=== PATIENT | male | born 1965 | race African-American/Black ===

== ENCOUNTER 2018-10-07 14:21 | Emergency (ER) | payer BC, OTHER ==
[2018-10-07] MEDS ORDERED: Pantoprazole 40 MG Tab.CR PO ONE (14:45)
[2018-10-07] MEDS ORDERED: Alum Hydrox/Mag Hydrox/Simeth 30 ML, Lidocaine 2% 15 ML PO ONE ×2 (14:45)
--- NOTE | 2018-10-07 14:50 | EDM.PDOC ---
ED HPI GENERAL MEDICAL PROBLEM - General Chief Complaint: Chest Pain Stated Complaint: [facility] Time Seen by Provider: 10/07/18 14:36 Source of Information: Reports: Patient History Limitations: Reports: No Limitations - History of Present Illness INITIAL COMMENTS - FREE TEXT/NARRATIVE: Patient is a 53-year-old male who presents to the ED via ambulance with concerns of having substernal chest pain described as a burning sensation half hour after eating pizza. Patient is a heavy equipment operator apprentice and was speaking with his girlfriend when this occurred. Pain came on quite strong described as a burning sensation with no radiation. There is no diaphoresis, short of breath , nausea vomiting, abdominal pain, dizziness, palpitations, or sensation of going to pass out. There is no back pain associated with this as well. He denies any pain to his upper extremities. He has no prior history of GERD or pain as such. States while in route to the hospital symptoms resolved. He has no complaints at this time. He does take lisinopril 20 mg every day for his hypertension. He has taken this medication today. He has no history of diabetes , lung disease, hypercholesteremia, DVT/PE, and/or any other history. There is no first-degree relatives with heart disease. Chest Pain Score (Numeric/FACES): 0 - Related Data Allergies Allergy/AdvReac Type Severity Reaction Status Date / Time No Known Allergies Allergy Verified 10/07/18 14:27 Home Meds: Home Meds Lisinopril 20 mg PO DAILY 10/07/18 [History] Past Medical History Cardiovascular History: Reports: Hypertension - Past Surgical History GI Surgical History: Reports: Hernia Repair/Other Other Musculoskeletal Surgeries/Procedures:: back sx Social & Family History - Family History Cardiac: Reports: [place] Other Cardiac Family History: maternal grandfather - Tobacco Use Smoking Status *Q: Current Some Day Smoker Years of Tobacco use: 20 Packs/Tins Daily: 1 - Caffeine Use Caffeine Use: Reports: Tea - Recreational Drug Use Recreational Drug Use: No ED ROS GENERAL - Review of Systems Review Of Systems: ROS reveals no pertinent complaints other than HPI. Constitutional: Denies: Fever, Chills, Malaise, Weakness, Fatigue, Decreased Appetite HEENT: Reports: No Symptoms Respiratory: Reports: No Symptoms Cardiovascular: Reports: Chest Pain, Blood Pressure Problem. Denies: Claudication, Dyspnea on Exertion, Edema, Lightheadedness, Orthopnea, Palpitations, PND, Syncope GI/Abdominal: Reports: No Symptoms Musculoskeletal: Reports: No Symptoms Neurological: Reports: No Symptoms ED EXAM, GENERAL - Physical Exam Exam: See Below Exam Limited By: No Limitations General Appearance: Alert, WD/WN, No Apparent Distress Eye Exam: Bilateral Eye: Normal Inspection Ears: Hearing Grossly Normal Nose: Normal Inspection Throat/Mouth: Normal Inspection, Normal Oropharynx, Normal Voice, No Airway Compromise Head: Atraumatic, Normocephalic Neck: Normal Inspection, Supple, Non-Tender, Full Range of Motion. No: Lymphadenopathy (L), Lymphadenopathy (R) Respiratory/Chest: No Respiratory Distress, Lungs Clear, Normal Breath Sounds, No Accessory Muscle Use, Chest Non-Tender Cardiovascular: Normal Peripheral Pulses, Regular Rate, Rhythm, No Murmur Peripheral Pulses: 2+: Radial (L), Radial (R), Popliteal (L), Popliteal (R) GI/Abdominal: Normal Bowel Sounds, Soft, Non-Tender, No Organomegaly, No Distention Back Exam: Normal Inspection. No: CVA Tenderness (L), CVA Tenderness (R) Extremities: Normal Inspection, Normal Range of Motion, Non-Tender, No Pedal Edema Neurological: Alert, Oriented, CN II-XII Intact, Normal Cognition, No Motor/ Sensory Deficits Psychiatric: Normal Affect, Normal Mood Skin Exam: Warm, Dry, Intact, Normal Color, No Rash Course - Vital Signs Last Recorded V/S: Last Vital Signs Temp 98.4 F 10/07/18 14:24 Pulse 90 10/07/18 14:24 Resp 20 10/07/18 14:24 BP 164/118 H 10/07/18 14:24 Pulse Ox 94 L 10/07/18 14:24 - Orders/Labs/Meds Orders: Active Orders 24 hr Category Date Time Status EKG 12 Lead [EKG Documentation Completion] [RC] STAT Care 10/07/18 14:45 Active Meds: Medications Discontinued Medications Generic Name Dose Route Start Last Admin Trade Name Vincenzoq PRN Reason Stop Dose Admin Al Hydroxide/Mg Hydroxide 30 0 ml 10/07/18 14:45 10/07/18 14:55 ml/ Lidocaine HCl 15 ml PO 10/07/18 14:46 45 ml ONETIME ONE Administration Pantoprazole Sodium 40 mg 10/07/18 14:45 10/07/18 14:55 Protonix PO 10/07/18 14:46 40 mg DAILY ONE Administration - Re-Assessments/Exams Free Text/Narrative Re-Assessment/Exam: Blood pressure 167/124, heart rate 85, SPO2 98%, respiratory rate 24. patient denies any complaints at this time. I've offered to obtain EKG, chest x-ray, and labs along with treatment with a PPI and GI cocktail. Patient states since he does not have any discomfort currently believes most likely related to acid reflux he refuses any lab work and/or chest x-ray. He has agreed to obtain EKG and treatment with GI cocktail/ protonix. EKG: Sinus rhythm at a rate [address] changes. 1518Reassessment, Patient doing well. No complaints. Tolerated the medications. He is ready to be discharged. Return precautions discussed with patient. He had no further questions or concerns. Discharge instructions documented. Departure - Departure Time of Disposition: 15:22 Disposition: Home, Self-Care 01 Condition: Good Clinical Impression: Gastroesophageal reflux disease Qualifiers: Esophagitis presence: esophagitis presence not specified Qualified Code(s): K21.9 - Gastro-esophageal reflux disease without esophagitis Hypertension Qualifiers: Hypertension type: essential hypertension Qualified Code(s): I10 - Essential ( primary) hypertension Instructions: Indigestion, [id number], Hypertension, [id number], DASH Eating Plan Referrals: PCP,Unknown [Primary Care Provider] - Forms: ED Department Discharge, ED Return to Work/School Form Additional Instructions: As discussed, I suspect cause of recent symptoms is most likely acid reflux. Thus will have you start taking Prilosec 20 mg every morning until evaluated by PCP. May utilize Zantac 150 mg at bedtime as needed. Refrain from spicy foods, caffeinated beverages, and/or eating/drinking within 4 hours of going to bed. Stick with a bland diet. Blood pressure was quite elevated with admission to the ED. Will have you start taking lisinopril 40 mg every day. Please follow up with pcp in the next week. Since no labs or chest x-ray were obtained other causes of chest discomfort were not ruled out. If for any reason you develop any new or worsening symptoms please return back to the ED. - My Orders Last 24 Hours: My Active Orders 10/07/18 14:45 EKG 12 Lead [EKG Documentation Completion] [RC] STAT - Assessment/Plan Last 24 Hours: My Active Orders 10/07/18 14:45 EKG 12 Lead [EKG Documentation Completion] [RC] STAT
== END 2018-10-07 15:46 | disposition home or self-care (01) ==
LOC: JD.ED 14:21
DX: K21.9 Gastro-esophageal reflux disease without esophagitis (principal); I10 Essential (primary) hypertension; F17.210 Nicotine dependence, cigarettes, uncomplicated; Z79.899 Other long term (current) drug therapy
CPT/HCPCS: 93005; 99285; A9270